=== PATIENT | male | born 1995 | race Caucasian/White ===

== ENCOUNTER → 2023-06-17 | Outpatient (CLI) | payer OTHER ==
[~2023-06-17] MED LIST: PROHANCE 279.3MG/ML 15ML VIAL ONE; PROHANCE 279.3MG/ML 5ML VIAL ONE
== END ==
LOC: M PLAIMG 12:11
PROVIDERS: ATTEND Student in an Organized Health Care Education/Training Program
DX: H53.8 Other visual disturbances (principal); R29.90 Unspecified symptoms and signs involving the nervous system
CPT/HCPCS: 70553; A9576